=== PATIENT | male | born 1990 | race Caucasian/White ===

== ENCOUNTER → 2024-03-19 11:30 | Outpatient (BNV) | payer OTHER, SELFPAY | PROVIDERS: Visit Provider Psychiatry & Neurology Psychiatry | DX: F43.10 Post-traumatic stress disorder, unspecified (principal); F33.2 Major depressive disorder, recurrent severe without psychotic features; F10.90 Alcohol use, unspecified, uncomplicated; F14.10 Cocaine abuse, uncomplicated | CPT/HCPCS: 90792; 99214; 99499 ==

== ENCOUNTER 2024-04-10 08:53 | Outpatient (REF) | payer MEDICAID, SELFPAY ==
[2024-04-10 09:13] LABS: MANUAL DIFF FLAG NO
[2024-04-10 09:53] LABS: Basophils Percent Auto 0.7 % (0-2); Eosinophils Absolute Auto 0.5 X10*3/uL (0.0-0.4); Hematocrit 44.3 % (42.0-52.0); Hemoglobin 15.4 g/dl (14.0-18.0); Imm Gran Abs Auto 0.03 X10*3/uL (0.00-0.03); Imm Gran Pct Auto 0.5 % (0.0-0.4); Lymphocytes Percent Auto 17.5 % (20-40); Mean Corpuscular HGB Conc 34.8 g/dl (31.0-36.0); Mean Corpuscular Hemoglobin 30.6 pg (27.0-33.0); Mean Corpuscular Volume 87.9 fL (80.0-98.0); Mean Platelet Volume 10.3 fL (9.4-12.4); Monocytes Absolute Auto 0.4 X10*3/uL (0.1-1.2); Monocytes Percent Auto 7.9 % (2-11); Neutrophils Absolute Auto 3.7 x10*3/uL (2.0-8.3); Neutrophils Percent Auto 65.4 % (45-73); Platelet Count 267 X10*3/uL (160-400); Red Blood Count 5.04 X10*6/uL (4.60-5.80); White Blood Count 5.6 X10*3/uL (4.8-10.8)
[2024-04-10 10:22] LABS: Alanine Aminotransferase 26 U/L (0-40); Albumin Level 4.2 g/dL (3.5-5.0); Alkaline Phosphatase 97 U/L (39-117); Anion Gap 9 (12-20); Aspartate Amino Transferase 20 U/L (5-37); Bilirubin Total 0.3 mg/dL (0.0-1.0); Blood Urea Nitrogen 14 mg/dL (9-16); Calcium 9.2 mg/dL (8.4-10.2); Carbon Dioxide 29 mmol/L (22-29); Chloride 105 mmol/L (96-108); Cholesterol 205 mg/dL (<200); Estimated Glomerular Filt Rate > 60; Glucose Fasting 99 mg/dL (60-99); HDL Cholesterol 57 mg/dL (>40); LDL Cholesterol Calculated 125 mg/dL (<100); Potassium 3.8 mmol/L (3.3-5.1); Sodium 139 mmol/L (135-145); Total Protein 6.9 g/dL (6.5-8.0); Triglycerides 118 mg/dL (<150)
[2024-04-10 10:42] LABS: Syphilis Screen Nonreactive (Nonreactive)
[2024-04-10 10:45] LABS: HBS Num1 50.16 mIU/mL (0-7.99); HBc Num1 0.11 S/CO (0.00-0.79); HBsAGNum1 0.28 S/CO (0.00-0.99); HIV AB/AG Nonreactive (Nonreactive); HIV Num 1 0.05 S/CO (0.00-0.99); Hepatitis B Core Antibody Nonreactive (Nonreactive); Hepatitis B Surface Antigen Negative (Negative); ~HepC Num1 0.18 S/CO (0.00-0.79); ~Hepatitis B Surface Antibody REACTIVE (Nonreactive); ~Hepatitis C Antibody Nonreactive (Nonreactive)
[2024-04-10 10:47] LABS: TSH reflex Free T4 1.43 uIU/mL (0.32-4.0)
[2024-04-10 11:04] LABS: Estimated Average Glucose 100 mg/dL; Hemoglobin A1c % 5.1 % (<6.0)
[2024-04-10 11:11] LABS: Vitamin B12 472 pg/mL (200-900)
== END 2024-04-10 08:54 | disposition home or self-care (01) ==
LOC: HO.LAB 08:53
PROVIDERS: Visit Provider Psychiatry & Neurology Psychiatry
DX: F39 Unspecified mood [affective] disorder (principal); F10.90 Alcohol use, unspecified, uncomplicated
CPT/HCPCS: 36415; 80053; 80061; 82607; 83036; 84443; 85025; 86704; 86706; 86780; 86803; 87340; 87389

== ENCOUNTER 2024-04-15 09:00 | Outpatient (RCR) | payer OTHER, SELFPAY ==
[2024-03-18 12:11] VITALS: BP 116/78; PULSE 57; TEMP 36.9; BMI 27.3
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
[2024-03-20 06:40] LABS: Amphetamine Screen Urine Not Detected (Not Detect); Barbiturates, Urine Not Detected (Not Detect); Benzodiazepines Screen Urine Not Detected (Not Detect); Buprenorphine Scr Not Detected (Not Detect); Cannabinoid Screen Urine Not Detected (Not Detect); Cocaine Screen Urine POSITIVE (Not Detect); Fentanyl, urine Not Detected (Not Detect); Methadone Screen, Urine Not Detected (Not Detect); Opiate Screen Urine Not Detected (Not Detect); Oxycodone Screen Urine Not Detected (Not Detect); Phencyclidine Screen Urine Not Detected (Not Detect)
--- NOTE | 2024-03-21 12:09 | HO.PHP ---
Referral for Med Provider services placed, faxed at 10 am on 03/21/24 to [facility] central intake.
--- NOTE | 2024-03-21 15:07 | HO.PHP ---
Client's case has been opened and reviewed in team.
--- NOTE | 2024-03-25 12:42 | HO.PHP ---
Pt called out today, reported to [facility] staff his dog and needed a day to process. Pt is safe, no safety concerns..
--- NOTE | 2024-03-26 15:39 | HO.PHP ---
Pt left for the day 15 minutes early, at 1:45pm. Stated he wanted to see his children before they left but did not elaborate. Order Selector called pt's cellphone at 3:30pm to check in and followup since pt was expressing increased anxiety during groups today but pt's number is not accepting calls at this time.
--- NOTE | 2024-03-28 17:04 | HO.PHP ---
Pt received his OP appts to [facility] for follow-up care post PHP. 04/03/2024 10:00 AM - 11:00 AM [facility] Adult Comprehensive Assessment Prog: Outpatient Site: [address] [place] [address] Staff: KEV MARIA 05/07/2024 9:00 AM - 10:00 AM Psychiatric E/M New - Face to Face v2 Prog: Psychiatric Services Site: [address] [place] [address] Staff: ASH KUMRAI Pt provided a copy.
--- NOTE | 2024-03-29 23:53 | HO.PHPPROGNO ---
Subjective Subjective Date of Service: 03/29/24 Reason For Visit: depression,anxiety,TATIANA Interim History: Patient seen for follow up. Patient reports relapsing twice this past week on alcohol and cocaine. Over the weekend he had had an argument with his which lead to him relapsing on Mon, and then his dog unexpectedly on Monday it hit me hard...I was up until 3am crying . He felt so miserable on Monday that he called out of [facility]. Monday he came to [facility] but felt so depressed, he was barely present (mentally) in groups. Also his had sent him a message saying that she and children were staying at her sister's house because they needed space from me . He denies any aggressive or abusive behaviors, but says he recognizes that emotionally he can be link, irritable, unpleasant, I'm a lot to deal with . He says he did not want them to leave, I begged her (and family) not to go but once he was left alone in the house he relapsed again that night, which lead to him missing the program again on Monday. He reports that the isolation was causing him to feel more depressed and hopeless and reports having had a really difficult week. He denies any thoughts of harming himself or others or giving up on life, but at a few points was experiencing some passive SI, asking himself what's the point? . He is feeling a little better today in so far that his will be bringing the kids this weekend to stay with him and he is really eager to have them back in the house. He and his have been texting/calling all week, but she continues to feel she needs space from him for now and wont be joining them at home this weekend which he is sad about. He shares that my is worried about me going back to drinking . He has not anything further to drink since Monday and is motivated to maintain sobriety, however relays cravings are present and there is a very strong urge to drink which he is trying to resist especially when he hasn't had anyone home all week (which otherwise would help keep him distracted and accountable). He has not noticed much effect from the topiramate. He has not been on naltrexone but is open to this. He was more forthcoming today about his struggles with mood dysregulation and addiction. He reports having been really down on himself after relapsing over the weekend. Even prior to the relapse he has been struggling with the ups and downs of his mood swings, which he says contribute to his marriage issues and other stressors. In fact he reports slamming doors and had turned and kicked the door over the weekend following the arguement with his . He says this has been a problem for him regardless of whether he is drinking or not. It's hard for me when my wants to talk...I just get overwhelmed and I just feel like i'm always on the verge of blowing up. I get irritable, add I start to shake, feeling like I'm going to explode and start yelling and crying, so I usually just brush her off (to avoid getting emotionally overwhelmed)...I walk around feeling like a bottle with all these emotions inside . He says their argument was over old and new things a lot around my anger and my drinking . He reports his sleep has improved with the addition of topiramate and prazosin, he has not had any nightmares or stressful dreams since starting medication. Before he was unable to sleep until 12a-3a. Now he takes the meds around 9 am is able to fall asleep around 9:30-10am. He does notice that he experiences a weird tingling in his throat, like a tickle, and it makes me feel like coughing . This feeling happens for a few hours in the AM about 60 min after taking his medications. He is uncertain if it occurs at night as he falls asleep quickly. He is not sure if it is the topirimate or the prazosin causing this feeling as he takes both BID and started on them the same time. Presents as very dysphoric and labile today, tearful without notable irritability. He avoided eye contact, was agitated, restless, kept fidgeting with items on the desk and bouncing his leg. Some of these behavioral issues are long-standing he says and gives an account ADHD symptoms since childhood. Medication Compliance: Yes Side effects from medications: Yes (as noted above) Attending Groups: Yes Review of Systems Acute medical concerns: No Mental Status Exam Mental Status Exam Narrative: Alert, oriented, in no acute distress. Calm, cooperative, engaged. Tense, a bit restless,, shaky, otherwise no psychomotor agitation or neurovegetative retardation. Eye contact avoided. Mood depressed, anxious, affect labile dysphoric tearful. Speech normal. Thought process linear, coherent. Thought content related to stressors, transient hopelessness w passive SI, denies any AI or HI. No paranoia or delusional content elicited. No evidence of psychosis. Insight and judgment - fair but adequate. Diagnostics Vital Signs (24Hr): BMI result Body Mass Index 27.3 Assessment & Plan Assessment & Plan (1) PTSD (post-traumatic stress disorder): Status: Acute Code(s): F43.10 - Post-traumatic stress disorder, unspecified (2) Major depressive disorder, recurrent: Qualifiers: Active/Remission status: currently active Major depression episode severity: severe Psychotic features: without psychotic features Qualified Code(s): F33.2 - Major depressive disorder, recurrent severe without psychotic features Status: Acute Code(s): F33.9 - Major depressive disorder, recurrent, unspecified (3) Alcohol use disorder: Status: Acute Code(s): F10.90 - Alcohol use, unspecified, uncomplicated (4) Cocaine use disorder: Status: Acute Code(s): F14.10 - Cocaine abuse, uncomplicated Plan seek extension for continuance in [facility] start oxcarbazapine 300 mg qhs start naltrexone 50 mg qhs continue sertraline 25 mg qd continue only prazosin 1 mg BID (will stop if causing AE:tingling/tickle in throat/cough) hold topiramate for now to clarify which medication is causing AE may consider amantadine to target ADHD sx and cocaine cravings Routine lab work, EKG and UDS as indicated Safety planning reviewed continue to monitor Patient educated on: diagnosis, medication risk/benefits and substance abuse Informed Consent: understands Reason for contiued partial hosp. stay Substantial Risk for: inability to function, rapid decompensation and med/psych decompensation Certification I certify that partial hospital treatment is medically necessary due to the symptoms and problems resulting from the patient's mental illness and the failure to treat the patient at the partial hospital level of care would likely result in the patient requiring inpatient psychiatric care which could not be prevented at a less intensive level of care. Total time managing care of this patient today __30__ minutes. Discharge Plan Discharge Attending provider: Ynes Chandler Medications: New sertraline 25 mg tablet 25 mg PO .QHS Qty: 30 0RF topiramate 25 mg tablet See Rx Instructions .ROUTE .COMPLEX Qty: 30 0RF Rx Instructions: take 1/2 - 1 tablet daily in afternoon as directed; take 1-2 tablets QHS prn sleep prazosin 1 mg capsule 1 mg PO BID PRN (Reason: anxiety) Qty: 20 0RF oxcarbazepine 300 mg tablet See Rx Instructions .ROUTE .COMPLEX Qty: 20 0RF Rx Instructions: start one tablet po daily at bedtime for 4 days then increase to 1 tablet po twice daily naltrexone 50 mg tablet 50 mg PO BEDTIME 30 Days Qty: 30 0RF Stand Alone Forms: Patient Portal Discharge page Print Language: Barbadian
--- NOTE | 2024-04-02 11:06 | HO.PHP ---
This law writer spoke to Sylvia Garland at [facility] to conduct a concurrent review at 8:30 am. Pt was approved for 6 more day but Sylvai stated Candido must first call [facility] to sort out his issue which is due to end today. If pt can not get his insurance reinstated by end of day tomorrow, pt will not have coverage and the extension will be void. Pt was informed and states he will work on it today.
--- NOTE | 2024-04-02 16:33 | HO.PHP ---
Pt's insurance is still not active for tomorrow so pt will take tomorrow off from [facility].
--- NOTE | 2024-04-03 16:41 | HO.PHP ---
Pt was contacted about his insurance still not being active today at 2:00 pm. Pt proceeded to call [employer] again and called this singer songwriter back at 2:30 stating he called and the issue was he needed to pick a plan so he did, [facility]. Pt was told the insurance should be active tomorrow. Installer Technician will call pt tomorrow morning with an update. Installer Technician also called Sylvia Garland at [facility] to update her and inform her of the delay, she stated she will not close him out and will wait for the status of his insurance tomorrow as well. When it is active she stated she will move forward with the concurrent review extension.
--- NOTE | 2024-04-05 10:55 | HO.PHP ---
Dada was called by [facility] admin, Felisa about programming today since his insurance is active as of today as he did not have coverage the last two days (04/03-04/04), so he was not scheduled to attend those days. He stated he overslept when he was called today (it was 9:30 about this time), and that there were no safety concerns. After this, this staff was asked to speak with Viri , Dada's who spoke about Dada leaving her text all week stating, he does not want to live anymore. The last text she received disclosing this was 15 minutes prior to her calling us, and she stated she has proof of these text messages in her phone. She has been on a business trip all week, and he has been home with the kids. She relayed that his sister was up the street available for the kids if needed. This t/w gave Viri the number to [facility] crisis co-response to have him assessed for safety. After this the program provider reached out to see if he required a section 12 due to it being Monday and no programming over the weekend. She found out that the and kids were planning on all being in the house this weekend. This was confirmed on my end by calling back the . He was agreeable to call [facility] crisis to be evaluated on his own accord. Follow-up will be made with [facility] to confirm this occured. MNF.
--- NOTE | 2024-04-05 12:22 | HO.PHP ---
This staff spoke to Kamryn at 12:15 with [facility] co-response to confirm Dada called [facility] himself to be assessed for safety. He did in fact do so, the previous clinician I spoke with, Filomena, is going out to assess him in the community.
--- NOTE | 2024-04-05 14:55 | HO.PHP ---
This filing writer reached back out to [facility] crisis to confirm where Dada stands with LOC. Filomena who assessed him disclosed he was seen, but he would not sign a release for [facility], so she could not relay any details. She told this filing writer I could call his Viri, which I proceeded to do which we do have a SHALONDA for. Viri stated that they did not have enough to go by to section him because he was not actively suicidal, and that she could call back if that status changes. This t/w suggested, as a recommendation from the PHP provider, that if she were to not be home with him and the kids that she call the police to do a wellness check because much of his SI statements are surrounding whether he has his and kids are available for. This t/w reassured her staff was concerned given the lapse of time not in programming, and that she should reach out to [facility] crisis again or the local police his she has any concerns about Dada over the weekend.
--- NOTE | 2024-04-05 21:38 | PM.EVENT ---
Event Note Date of Service: 04/20/24 Event Note: Reaeched out to patient who did not attend program today. He says he overslept and missed coming in this morning. He says he is home currently with his kids. His is in [place] but will be home later this afternoon. He says that he had been texting her last night and that they were arguing and expressed conditional SI, things were getting heated and I did make some suicidal statements but I didnt really mean I was going to do anything.... and says that he was just trying to relay his frustration and desperation to make their marriage work. She doesn't want to hear it right now . He expects that she will be coming home soon and is hoping she will stay but also says she may choose to stay with her family and he says he will be okay with that. He says he is grateful to be spending time with his kids and says they have had a full week keeping busy, making meals and managing the household in his 's absence. He is agreeable to meeting with Crisis for a psych evaluation today and understands if this it not done we will send over a section 12 to make sure he is assessed. Patient relays understanding and being fully cooperative with plan. He denies any hopelessness, SI, HI, AH, VH. He also shares that he relapsed last night after the argument with his , and aside from overslepeing this morning, he is in a better mental state and says I really need to stay away from alcohol. It does not help and makes everything worse Time Spent With Patient Time: Total time managing care of this patient today ____ minutes.
--- NOTE | 2024-04-08 12:04 | HO.PHP ---
This write spoke with Sylvia Garland with [facility] to confirm an extenstion for Dada of 6 more days. Dated 04/08- 04/15. It was confirmed he was not scheduled on 04/03 and 04/04 because of lack of coverage.
--- NOTE | 2024-04-08 20:46 | P.PNPSP_ITS ---
Subjective Subjective Date of Service: 04/08/24 Reason For Visit: depression,anxiety,TATIANA Interim History: Patient seen for follow-up. Updated loan underwriter on events over the weekend. Reached out to crisis as instructed on Monday, was assessed in his home and also met with a oil recovery unit operator. (They have plans to meet up Monday and attend AA meeting. He also spoke with his shuttle fitting supervisor who agreed to be his AA sponsor as well as his marriage gymnastics coach or instructor.) Afterwards his returned home, was dissatisfied with outcome of the crisis evaulation and reportedly called crisis herself. Multiple ambulances and police cruisers arrived at his house. He felt overwhelmed, triggered and somewhat betrayed by his . He was very emotional relaying this information and cited abandonment issues but was able to gather himself and speak with crisis and pointing out that he had been taking care of himself and his kids all week while was away without issue. Crisis agreed patient did not need hospitalization, however once they left continued to be angry and argument ensued. He wound up staying at his sisters house and drank that night.The remainder of the weekend was uneventful, he returned home and spent time with kids. No further slip-ups or relapses. He and his continue to work on their marriage. Currently says he is well...doing better . Denies any SI, but feeling the stress, denies cravings but says when triggered by arguments with his the impulse to drink is unresistable. He is advocating to start on Antabuse, he is concerned about relapses considering his is still angry and argumentative and says he may not be able to avoid these triggers however he says his is very motivated and goal-oriented toward maintaining sobriety. He last drank on Monday night, denies any illicit drug use, and states that urges/cravings are low outside of these triggering situations. He had only taken the oxcarbazepine for a few days but then stopped, stating he was waking too groggy in the AM. Also that odd tickle/cough from the medications (presumably from prazosin or topiramate) has since resolved. Medication Compliance: Yes Side effects from medications: No Attending Groups: Yes Review of Systems Acute medical concerns: No Mental Status Exam Mental Status Exam Narrative: Alert, oriented, in no acute distress. Calm, cooperative, engaged. Tense, a bit restless,, shaky, otherwise no psychomotor agitation or neurovegetative retardation. Eye contact avoided. Mood depressed, anxious, affect anxious, mild lability. Speech normal. Thought process linear, coherent. Thought content related to stressors, denies hopelessness or SI, denies any AI or HI. No par anoia or delusional content elicited. No evidence of psychosis. Insight and judgment - fair but adequate. Diagnostics Vital Signs (24Hr): BMI result Body Mass Index 27.3 Assessment & Plan Assessment & Plan (1) PTSD (post-traumatic stress disorder): Status: Acute Code(s): F43.10 - Post-traumatic stress disorder, unspecified (2) Major depressive disorder, recurrent: Qualifiers: Active/Remission status: currently active Major depression episode severity: severe Psychotic features: without psychotic features Qualified Code(s): F33.2 - Major depressive disorder, recurrent severe without psychotic features Status: Acute Code(s): F33.9 - Major depressive disorder, recurrent, unspecified (3) Alcohol use disorder: Status: Acute Code(s): F10.90 - Alcohol use, unspecified, uncomplicated (4) Cocaine use disorder: Status: Acute Code(s): F14.10 - Cocaine abuse, uncomplicated Plan continue naltrexone 50 mg qhs increase sertraline to 50 mg qd increase prazosin to 2 mg QAM and continue 1 mg qpm start disulfarim 250 mg qd (pt advocating for rx) patient stopped oxcarbazapine 300 mg qhs due to sedation, will cont to hold for now Routine lab work, EKG and UDS as indicated Safety planning reviewed continue to monitor Patient educated on: diagnosis, medication risk/benefits and substance abuse Informed Consent: understands Reason for contiued partial hosp. stay Substantial Risk for: inability to function, rapid decompensation and med/psych decompensation Certification I certify that partial hospital treatment is medically necessary due to the symptoms and problems resulting from the patient's mental illness and the failure to treat the patient at the partial hospital level of care would likely result in the patient requiring inpatient psychiatric care which could not be prevented at a less intensive level of care. Total time managing care of this patient today __30__ minutes. Discharge Plan Discharge Attending provider: Ynes Chandler Medications: New oxcarbazepine 300 mg tablet See Rx Instructions .ROUTE .COMPLEX Qty: 20 0RF Rx Instructions: start one tablet po daily at bedtime for 4 days then increase to 1 tablet po twice daily naltrexone 50 mg tablet 50 mg PO BEDTIME 30 Days Qty: 30 0RF prazosin 2 mg capsule 2 mg PO QAM Qty: 14 0RF disulfiram 250 mg tablet 250 mg PO DAILY Qty: 14 0RF sertraline 50 mg tablet 50 mg PO DAILY Qty: 14 0RF Changed prazosin 1 mg capsule 1 mg PO QPM Qty: 14 0RF Stand Alone Forms: Patient Portal Discharge page Print Language: Danish
--- NOTE | 2024-04-09 12:10 | HO.PHP ---
[facility] staff member met with Dada after the education group due to him stating that the group topic was causing him to have flashbacks. PHP staff member voiced that she is aware that he stated he would like to do this at home but noted him that if this is causing him to become triggered and experience flashbacks, that she would advise him not to engage in writing the letter at this time until he has more coping skills to manage the emotions that will come up with this letter. Dada stated that he wants to and needs to do this because he feels it will be helpful. PHP staff member noted that if he does decide to move forward with writing the letter to inform his , so she can help provide support. PHP staff reiterated he does not have to do this until he is ready. Dada appeared receptive. [facility] staff member and Dada discussed his past trauma and continuing to process with his OP therapist. Dada was in agreement. Dada stated that the flashbacks do not cause him to develop SI and that he is safe.
[2024-04-11 14:35] LABS: Amphetamine Screen Urine Not Detected (Not Detect); Barbiturates, Urine Not Detected (Not Detect); Benzodiazepines Screen Urine Not Detected (Not Detect); Buprenorphine Scr Not Detected (Not Detect); Cannabinoid Screen Urine Not Detected (Not Detect); Cocaine Screen Urine POSITIVE (Not Detect); Fentanyl, urine Not Detected (Not Detect); Methadone Screen, Urine Not Detected (Not Detect); Opiate Screen Urine Not Detected (Not Detect); Oxycodone Screen Urine Not Detected (Not Detect); Phencyclidine Screen Urine Not Detected (Not Detect)
--- NOTE | 2024-04-15 21:26 | HO.PHPPROGNO ---
Subjective Subjective Date of Service: 04/15/24 Reason For Visit: depression,anxiety,TATIANA Interim History: Patient seen for follow-up, anticipating discharge at the end of program today.? I just got off with [facility] trying to get in the [facility] program for financial assistance. Update senior grant writer on events, picked up puppy on Monday. Things have been better at home. No arguments. and he have been trying to make some space, not engaging much in the house, keeping things cordial and minimal communication so things dont escalate. Just focusing on the kids and things that need to be done. He has been consistent on the Antabuse which he is tolerating and is grateful for being on. Relays being very focused and committed to sobriety. He relays some ongoing sleep disturbance from anxiety, restlessness and ongoing lability and emotionality in the face of relationship stress. He is agreeable to restarting on the Trileptal for mood stability. Reports no acute issues or concerns. Medication compliant, medications well-tolerated. Denies any adverse effects.? Denies any hopelessness or SI. Denies thoughts of harming self or others at this time. Denies any aggressive ideation or HI. Denies any paranoia or AH or VH. Appetite, energy stable. Medication Compliance: Yes Side effects from medications: No Attending Groups: Yes Review of Systems Acute medical concerns: No Mental Status Exam Mental Status Exam Narrative: Alert, oriented, in no acute distress. Calm, cooperative, engaged. Mood stable, affect brighter, some lability. Speech normal. Thought process linear, coherent. Thought content related to stressors, denies hopelessness or SI, denies any AI or HI. No paranoia or delusional content elicited. No evidence of psychosis. Insight and judgment - fair but adequate. Diagnostics Vital Signs (24Hr): BMI result Body Mass Index 27.3 Assessment & Plan Assessment & Plan (1) PTSD (post-traumatic stress disorder): Status: Acute Code(s): F43.10 - Post-traumatic stress disorder, unspecified (2) Major depressive disorder, recurrent: Qualifiers: Active/Remission status: currently active Major depression episode severity: severe Psychotic features: without psychotic features Qualified Code(s): F33.2 - Major depressive disorder, recurrent severe without psychotic features Status: Acute Code(s): F33.9 - Major depressive disorder, recurrent, unspecified (3) Alcohol use disorder: Status: Acute Code(s): F10.90 - Alcohol use, unspecified, uncomplicated (4) Cocaine use disorder: Status: Acute Code(s): F14.10 - Cocaine abuse, uncomplicated Plan Discharge from [facility] restart oxcarbazapine 150-300 mg qhs continue sertraline 50 mg qd continue prazosin 2 mg QAM and continue 1-2 mg QHS continue disulfarim 250 mg qd continue naltrexone 50 mg qhs Routine lab work, EKG and UDS as indicated Refills sent to pharmacy Will defer further medication management to outpatient provider *Safety plan reviewed *Discharge diagnoses, treatment course, discharge plan have been reviewed with patient (including medication regime, medication management, potential side effects) as well as treatment rationale were also revisited *Discharge paperwork signed and given to patient, copy sent for scanning to chart Certification I certify that partial hospital treatment is medically necessary due to the symptoms and problems resulting from the patient's mental illness and the failure to treat the patient at the partial hospital level of care would likely result in the patient requiring inpatient psychiatric care which could not be prevented at a less intensive level of care. Total time managing care of this patient today ____ minutes. Discharge Plan Discharge Attending provider: Ynes Chandler Medications: Continued disulfiram 250 mg tablet 250 mg PO DAILY Qty: 30 0RF sertraline 50 mg tablet 50 mg PO DAILY Qty: 30 0RF prazosin 2 mg capsule 2 mg PO QAM Qty: 30 0RF naltrexone 50 mg tablet 50 mg PO BEDTIME 30 Days Qty: 30 0RF Changed prazosin 1 mg capsule 1 mg PO BID Qty: 60 0RF oxcarbazepine 300 mg tablet 150 - 300 mg PO .QHS Qty: 20 0RF Stand Alone Forms: Patient Portal Discharge page Patient Education: Post Traumatic Stress Disorder (DC) Print Language: Ukrainian Telehealth Telehealth Telehealth Platform: Other (please specify) ([employer]) Location of provider rendering services: other (private office) Location of patient: other ([facility]) Patient Identification confirmed using: Name, : Yes Telehealth method: video Patient verbally consented to treatment: Yes
== END 2024-04-15 23:59 | disposition home or self-care (01) ==
LOC: HO.PHPA 09:00
PROVIDERS: Visit Provider Psychiatry & Neurology Psychiatry
DX: F33.2 Major depressive disorder, recurrent severe without psychotic features (principal); F43.10 Post-traumatic stress disorder, unspecified; F10.90 Alcohol use, unspecified, uncomplicated; F14.10 Cocaine abuse, uncomplicated; Z79.899 Other long term (current) drug therapy
CPT/HCPCS: 80307; 90791; 90853

== ENCOUNTER 2024-10-11 13:00 | Outpatient (RCR) | payer MEDICAID, SELFPAY ==
[2024-09-27 10:58] VITALS: BP 98/60; PULSE 64; TEMP 37.2
[2024-09-27 11:01] VITALS: BMI 28.4
--- NOTE | 2024-09-27 11:48 | PC.ADMIT ---
Patient is a 34 year old male who was referred to [facility] by his therapist. Patient in recovery for alcohol and cocaine use. Patient reports he wants to work on his mental health while in the program. Patient reports he has trauma history and PTSD. He is currently unemployed. He reports he wants to work on himself and his family. He stated he wants to be stable enough to be able to work again after he is discharged from [facility]. Patient is not on any medications currently as he did not like the way the medications made him feel. Patient believes he has a good support system in place regarding substance use. He stated his supports are his therapist, heel attacher, and his . He reports he has been sober since he was last in [facility] in March 2024 and relapsed for one day in July 2024 on cocaine and alcohol. He does not feel he needs more support at this time regarding substance use. He reports he is here to address his mental health. Patient is alert and oriented x4. He is calm and cooperative. He presented with anxious mood and congruent affect. He appeared somewhat restless. He denied SI, no HI. He was given a copy of his safety plan if needed.
--- NOTE | 2024-09-30 10:30 | HO.PHP ---
PHP Admin, Felisa, informed the team that Dada will not be in attendance to program today due to no childcare. Dada disclosed no safety concerns to Felisa and will be in attendance to program tomorrow.
[2024-10-01 13:55] LABS: Amphetamine Screen Urine Not Detected (Not Detect); Barbiturates, Urine Not Detected (Not Detect); Benzodiazepines Screen Urine Not Detected (Not Detect); Buprenorphine Scr Not Detected (Not Detect); Cannabinoid Screen Urine Not Detected (Not Detect); Cocaine Screen Urine Not Detected (Not Detect); Fentanyl, urine Not Detected (Not Detect); Methadone Screen, Urine Not Detected (Not Detect); Opiate Screen Urine Not Detected (Not Detect); Oxycodone Screen Urine Not Detected (Not Detect); Phencyclidine Screen Urine Not Detected (Not Detect)
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
--- NOTE | 2024-10-02 13:49 | HO.PHP ---
PHP staff member faxed over a referral for med management at the [facility] location in [place], [place] for Dada Gomez.
--- NOTE | 2024-10-03 15:21 | PHP/IOPCOSI ---
Pt's case was opened and reviewed in treatment team.
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
== END 2024-10-11 23:59 | disposition home or self-care (01) ==
LOC: HO.PHPA 13:00
PROVIDERS: Visit Provider Psychiatry & Neurology Psychiatry
DX: F33.2 Major depressive disorder, recurrent severe without psychotic features (principal); F43.10 Post-traumatic stress disorder, unspecified; F34.89 Other specified persistent mood disorders; F10.21 Alcohol dependence, in remission; F14.21 Cocaine dependence, in remission
CPT/HCPCS: 80307; 90791; 90853